=== PATIENT | female | born 1940 | race American Indian/Alaskan Native ===

== ENCOUNTER 2021-11-17 10:46 | Emergency (ER) | payer MEDICARE ==
--- NOTE | 2021-11-17 10:53 | Emergency Department Report ---
HPI - General Time Seen by Provider: 11/17/21 10:49 - HPI HPI: Room 19 The patient is a 81-year-old female presenting in cardiac arrest. Per EMS the patient was a witnessed collapse. EMS arrived on scene at 09: 5 8 to find the patient in PEA. EMS reports the patient collapsed 10 minutes prior to their arrival. ACLS protocols were initiated and the patient was intubated using an ET tube. Patient was administered 3 rounds of epi, 1 amp of sodium bicarb by EMS prior to arrival. Upon arrival to the ED the patient was found in PEA and ACLS protocols were continued but there was no return of spontaneous circulation ED Past Medical Hx - Past Medical History Hx of Cancer: Yes (Colon CA) - Surgical History Past Surgical History?: No - Family History Family history: no significant - Social History Smoking Status: Unknown if ever smoked Substance Use Type: None ED Review of Systems ROS: Stated complaint: CARDIAC ARREST Other details as noted in HPI Comment: Unobtainable due to pts medical conditions Physical Exam - Physical Exam Physical Exam: GENERAL: The patient is well-developed well-nourished female lying on stretcher receiving chest compressions and being bagged via ET tube. [] HEENT: Normocephalic. Atraumatic. NECK: Supple. Trachea midline CHEST/LUNGS: No spontaneous respirations. Breath sounds equal bilaterally with bagging HEART/CARDIOVASCULAR: No heart sounds. PEA on monitor ABDOMEN: There is no abdominal distention. SKIN: There is no rash. There is no edema. There is no diaphoresis. NEURO: GCS 3 T MUSCULOSKELETAL: There is no evidence of acute injury. ED Medical Decision Making - Differential Diagnosis Cardiac arrest Critical care attestation.: If time is entered above; I have spent that time in minutes in the direct care of this critically ill patient, excluding procedure time. ED Disposition Clinical Impression: Cardiac arrest Disposition: 20 Is pt being admited?: No Does the pt Need Aspirin: No Condition: Poor Time of Disposition: 10:49 (Patient )
== END 2021-11-17 16:22 ==
LOC: ED 10:46
DX: I46.9 Cardiac arrest, cause unspecified (principal); Z85.038 Personal history of other malignant neoplasm of large intestine
CPT/HCPCS: 99285